=== PATIENT | male | born 2000 | race Hispanic/Latino ===

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

== ENCOUNTER 2018-02-25 15:24 | Emergency (ER) | payer BC, OTHER ==
[~2018-02-25] VITALS: Ht 152.4 cm; Wt 59.0 kg
[~2018-02-25 15:24] MED LIST: ACHD5005 PO; MINO100C2 PO; SULF1TAB35 PO
[2018-02-25] MEDS ORDERED: D-ME118S33 PO (15:41)
[2018-02-25] MEDS ORDERED: AMOX500C2 PO (15:41)
--- NOTE | 2018-02-25 15:41 | ED EENT ---
History of Present Illness General Chief Complaint: Ear Problems Stated Complaint: CONGESTION/R EAR PAIN Nursing Triage Note: PT PRESENTS TO ER WITH COMPLAINT OF BILATERAL EAR ACHE SINCE SUNDAY. STATES HE IS ALSO HAS A SORE THROAT AND COUGH. Source: patient Exam Limitations: no limitations History of Present Illness Date Seen by Provider: Feb 25, 2018 Time Seen by Provider: 15:38 Initial Comments To ER with left ear fullness since (today is Sunday) and right ear discomfort and pain today. He also has a sore throat, nasal congestion and cough. Timing/Duration: gradual Severity: moderate Location: ear (R), ear (L), nose Associated Symptoms: cough, sore throat Allergies and Home Medications Allergies Coded Allergies: No Known Drug Allergies (Unverified , 11/11/16) Home Medications Hydrocodone Bit/Acetaminophen 1 Each Tablet, 1 EACH PO Q4H PRN for PAIN Prescribed by: JOHNIE FONTANEZ on 11/11/162308 Minocycline HCl 100 Mg Capsule, 100 MG PO BID Prescribed by: JOHNIE FONTANEZ on 11/11/162308 Sulfamethoxazole/Trimethoprim 1 Each Tablet, 1 EACH PO BID Prescribed by: JOHNIE FONTANEZ on 11/11/162308 Patient Home Medication List Home Medication List Reviewed: Yes Review of Systems Review of Systems Constitutional: see HPI Eyes: No Symptoms Reported Ears: See HPI, Pain Nose: no symptoms reported Mouth: no symptoms reported Throat: see HPI, pain Respiratory: see HPI, cough Cardiovascular: no symptoms reported Musculoskeletal: no symptoms reported Past Kqlhzlt-Cpgucy-Dwurrf Hx Patient Social History Alcohol Use: Denies Use Recreational Drug Use: No Smoking Status: Never a Smoker 2nd Hand Smoke Exposure: No Recent Foreign Travel: No Contact w/Someone Who Travel: No Recent Infectious Disease Expo: No Recent Hopitalizations: No Immunizations Up To Date Tetanus Booster (TDap): Unknown Seasonal Allergies Seasonal Allergies: No Past Medical History Surgeries: Yes Appendectomy, Orthopedic Respiratory: No Cardiac: No Neurological: No Genitourinary: No Gastrointestinal: No Musculoskeletal: No Endocrine: No HEENT: No Cancer: No Psychosocial: No Integumentary: No Family Medical History No Pertinent Family Hx Physical Exam Vital Signs Vital Signs - First Documented 02/25/18 15:32 Temp 97.1 Pulse 76 Resp 20 B/P (MAP) 117/75 (89) Pulse Ox 99 O2 Delivery Room Air Height, Weight, BMI Height: 5'0" Weight: 130lbs. oz. 58.209898uq; 21.09 BMI Method:Stated General Appearance: WD/WN, no apparent distress Eyes: bilateral eye normal inspection, bilateral eye PERRL, bilateral eye EOMI Ears: bilateral ear auricle normal, bilateral ear canal normal, bilateral ear TM dull, bilateral ear TM red, bilateral ear TM bulging Mouth/Throat: other (pharyngeal erythema) Neck: non-tender, full range of motion; No lymphadenopathy (R), No lymphadenopathy (L) Cardiovascular: regular rate, rhythm, no murmur Respiratory: lungs clear, normal breath sounds, no respiratory distress, no accessory muscle use; No crackles, No rales, No rhonchi, No stridor Gastrointestinal: normal bowel sounds, non tender, soft Neurologic/Psychiatric: alert, normal mood/affect, oriented x 3 Skin: normal color, warm/dry Progress/Results/Core Measures Results/Orders Vital Signs/I&O 02/25/18 15:32 Temp 97.1 Pulse 76 Resp 20 B/P (MAP) 117/75 (89) Pulse Ox 99 O2 Delivery Room Air Blood Pressure Mean: 89 Departure Impression Primary Impression: Otitis media Qualified Codes: H66.003 - Acute suppurative otitis media without spontaneous rupture of ear drum, bilateral Disposition: 01 HOME, SELF-CARE Condition: Stable Departure-Patient Inst. Decision time for Depature: 15:39 Referrals: NO,LOCAL PHYSICIAN (PCP/Family) Primary Care Physician Patient Instructions: Ear Infections (Otitis Media) (DC) Add. Discharge Instructions: 1. Use Tylenol and ibuprofen for pain control 2. Antibiotics and cough/decongestant medication as directed. Do not use any [id number] cough medications like NyQuil while you are taking this prescribed cough medication. Follow-up with your doctor next week. All discharge instructions reviewed with patient and/or family. Voiced understanding. Scripts D-Methorphan Hb/P-Epd HCl/Bpm (Bromfed Dm Cough Syrup) 118 Ml Syrup 5 ML PO Q4H PRN for CONGESTION, #120 ML Prov: JOVANY LERMA POLE SHAVER 02/25/18 Amoxicillin (Amoxicillin) 500 Mg Capsule 500 MG PO TID, #21 CAP Prov: JOVANY LERMA POLE SHAVER 02/25/18 Work/School Note: Work Release Form Date Seen in the Emergency Department: Feb 25, 2018 Return to Work: Feb 27, 2018 JOVANY LERMA APRN Feb 25, 2018 15:41
[2018-02-25 15:46] VITALS: BP 117/75
--- OUTSIDE RECORDS SUMMARY | 2018-02-25 21:28 | XMS REPORT ---
Author Author ALEXANDRO GUTIERREZ [facility] [employer] Address Unknown Phone Unavailable Care Team Providers Care Clinic Supervisor Name Role Phone ALEXANDRO GUTIERREZ Unavailable Allergies No Known Allergies Problems Problem Type Condition Code Onset Dates Condition Status Assessment Encounter for immunization Z23 Active Medications No Known Medications Procedures Procedure Coding System Code Date HEP B (PED/ADOL, 3 DOSE) CPT-4 55303 July 07, 2015 GARDISIL 9 CPT-4 79652 July 07, 2015 HEP A (PED/ADOL-2 DOSE) CPT-4 81498 July 07, 2015 IMMUNIZATION ADMIN, EACH ADD (please include units) CPT-4 07206 July 07, 2015 SINGLE IMMUNIZATION ADMIN CPT-4 36822 July 07, 2015 Results No Known Results Immunizations Vaccine Administration Date HEP A (PED/ADOL-2 DOSE) July 07, 2015 HEP B (PED/ADOL, 3 DOSE) July 07, 2015 GARDASIL 9 July 07, 2015 Summary Purpose eClinical[employer] Submission
--- OUTSIDE RECORDS SUMMARY | 2018-02-25 21:28 | XMS REPORT ---
Author Author ALEXANDRO GUTIERREZ Organization [employer] Address Unknown Phone Unavailable Care Team Providers Care Home Health Clinical Liaison Name Role Phone ALEXANDRO GUTIERREZ Unavailable Allergies No Known Allergies Problems Problem Type Condition Code Onset Dates Condition Status Assessment Encounter for immunization Z23 Active Medications No Known Medications Procedures Procedure Coding System Code Date HEP B (PED/ADOL, 3 DOSE) CPT-4 07234 Feb 10, 2015 GARDISIL 9 CPT-4 57446 Feb 10, 2015 TDAP (BOOSTRIX) CPT-4 57048 Feb 10, 2015 IMMUNIZATION ADMIN, EACH ADD (please include units) CPT-4 16647 Feb 10, 2015 POLIO (IPV) CPT-4 93802 Feb 10, 2015 MMR VACCINE, [place] CPT-4 29803 Feb 10, 2015 SINGLE IMMUNIZATION ADMIN CPT-4 09983 Feb 10, 2015 VARICELLA CPT-4 78533 Feb 10, 2015 Results No Known Results Immunizations Vaccine Administration Date TDAP (BOOSTRIX) Feb 10, 2015 HEP B (PED/ADOL, 3 DOSE) Feb 10, 2015 MMR Feb 10, 2015 GARDISIL 9 Feb 10, 2015 VARICELLA Feb 10, 2015 POLIO (IPV) Feb 10, 2015 Summary Purpose eClinicalWorks Submission
== END 2018-02-25 15:50 | disposition home or self-care (01) ==
LOC: EDUNIT# 15:24 → ER 15:25
DX: H66.92 Otitis media, unspecified, left ear (principal); Z90.49 Acquired absence of other specified parts of digestive tract
CPT/HCPCS: 99282